=== PATIENT | male | born 1985 | race Caucasian/White ===

== ENCOUNTER 2016-09-01 12:36 | Emergency (ER) | payer OTHER | END 2016-09-01 13:17 | disposition home or self-care (01) | LOC: ER1 12:36 | DX: K08.89 Other specified disorders of teeth and supporting structures (principal) | CPT/HCPCS: 96372; 99282; J1885 ==

== ENCOUNTER 2021-07-06 22:45 | Inpatient (IN) | payer OTHER ==
[~2021-07-06] VITALS: Ht 185.4 cm; Wt 110.2 kg
[2021-07-07 00:06] LABS: HEMOGLOBIN 17.5 gm/dl (14.0-17.5); RED BLOOD COUNT 5.28 M/UL (4.20-5.50); WHITE BLOOD COUNT 10.9 K/UL (4.5-11.0)
[2021-07-07 07:54] LABS: BUN/CREATININE RATIO 22 (0-10)
[2021-07-08 03:53] LABS: WHITE BLOOD COUNT 8.7 K/UL (4.5-11.0)
[2021-07-08 03:55] LABS: HEMOGLOBIN 14.6 gm/dl (14.0-17.5); RED BLOOD COUNT 4.43 M/UL (4.20-5.50)
[2021-07-08 04:24] LABS: BUN/CREATININE RATIO 19 (0-10)
[2021-07-09 03:49] LABS: HEMOGLOBIN 14.4 gm/dl (14.0-17.5); RED BLOOD COUNT 4.45 M/UL (4.20-5.50); WHITE BLOOD COUNT 7.1 K/UL (4.5-11.0)
[2021-07-09 04:21] LABS: BUN/CREATININE RATIO 15 (0-10)
== END 2021-07-09 15:08 | disposition home or self-care (01) | DRG 917 ==
LOC: ER1 22:45 → CDU 07-07 02:08 → PROG CARE 07-07 02:08
PROVIDERS: Internal Medicine; Student in an Organized Health Care Education/Training Program; ADMIT Internal Medicine
PROC: HZ2ZZZZ Detoxification Services for Substance Abuse Treatment (ICD-10-PCS; principal; 2021-07-09)
DX: T43.621A Poisoning by amphetamines, accidental (unintentional), initial encounter (principal); G92.8 Other toxic encephalopathy; Z20.822 Contact with and (suspected) exposure to COVID-19; M62.82 Rhabdomyolysis; N17.9 Acute kidney failure, unspecified; F19.20 Other psychoactive substance dependence, uncomplicated; E86.0 Dehydration; F10.10 Alcohol abuse, uncomplicated; F31.9 Bipolar disorder, unspecified; Z96.669 Presence of unspecified artificial ankle joint; F17.200 Nicotine dependence, unspecified, uncomplicated; Z82.49 Family history of ischemic heart disease and other diseases of the circulatory system; Z83.3 Family history of diabetes mellitus
CPT/HCPCS: 36415; 51701; 71045; 80048; 80053; 80307; 81001; 82550; 82553; 83735; 84100; 84132; 84484; 85025; 96365; 96366; 96372; 96375; 96376; 99285; J1200; J1630; J1650; J2060; J3411; J3475; J3480; J7030; U0002